=== PATIENT | male | born 1965 | race Caucasian/White ===

== ENCOUNTER 2024-12-04 10:24 | Emergency (ER) | payer MEDICARE, SELFPAY ==
[2024-12-04] VITALS (7 sets, daily range): BP systolic 93–121; BP diastolic 65–80; PULSE 66–91; RESP 14–21; TEMP 36.8; O2SAT 95–100
--- NOTE | 2024-12-04 10:39 | ECG_ITS ---
Test Date: 2024-12-04 10:44:43 Measurements Intervals [place] Rate: 65 P: 44 MN: 165 QRS: 27 QRSD: 93 T: 70 QT: 377 QTc: 394 Interpretive Statements SINUS RHYTHM MINIMAL Q WAVES- HIGH LATERAL LEADS NONSPECIFIC T-WAVE ABNORMALITY- HIGH LATERAL LEADS BORDERLINE ECG No previous ECG available for comparison Electronically Signed On 12-04-2024 10:47:05 CDT by Ezra Verdugo D.O.
--- NOTE | 2024-12-04 12:12 | ED.RECABL ---
HPI - Recheck/Abnormal Lab/Rx General Chief Complaint: Recheck/Abnormal Lab/Rx Stated Complaint: vagal after cath removal Time Seen by Provider: 12/04/24 12:05 History of Present Illness HPI narrative: this is a 59-year-old male with history of urinary retention who presents to the ED from urologist's office for syncopal episode. Patient states that he had his Hoffman catheter removed today ventrally after he passed out. He reports that he felt lightheaded and dizzy just prior to onset of symptoms. Chest pain palpitations. He is unsure how long he was but he feels that he is at his baseline this time denies chest pain, shortness of breath, changes in vision, lightheadedness, dizziness. Related Data Allergies Allergy/AdvReac Type Severity Reaction Status Date / Time morphine Allergy urticaria Verified 12/04/24 10:38 Penicillins Allergy Hives Verified 12/04/24 10:38 Sulfa (Sulfonamide Allergy Unknown Verified 12/04/24 10:38 Antibiotics) Review of Systems Review of Systems: Gen.: Denies fevers or chills Eyes: Denies eye pain or visual change ENT: Denies congestion Respiratory: Denies shortness of breath or cough CV: Denies chest pain or palpitations GI: Denies abdominal pain nausea, emesis or diarrhea denies burning, urgency, frequency or hematuria Musculoskeletal: Denies back pain or muscle pain Neuro: Denies numbness, tingling, weakness or focal weakness Skin: Denies rash Except as documented, all other systems reviewed and negative Exam Narrative: APPEARANCE: No acute distress, nontoxic, resting in bed EYES: EOMI HEENT: Normocephalic, atraumatic, OMM RESPIRATORY: No respiratory distress Clear to auscultation bilaterally with no rhonchi wheezing or rales. CARDIOVASCULAR: Regular rate and rhythm without murmurs rubs or gallops. ABDOMINAL: Soft, nontender, nondistended, no rebound or guarding MUSCULOSKELETAl: Moves all extremities. No clubbing, cyanosis or edema. NEURO: Awake and alert. Following commands, speech normal, no focal deficits SKIN:: Warm, dry. No rashes lesions or abrasions PSYCHIATRIC: Normal affect/mood, Course Vital Signs Vital signs: Vital Signs Temperature 98.2 F 12/04/24 10:27 Pulse Rate 73 12/04/24 10:27 Respiratory Rate 16 12/04/24 10:27 Blood Pressure 93/65 L 12/04/24 10:27 Pulse Oximetry 100 12/04/24 10:27 Temperature 98.2 F 12/04/24 10:27 Pulse Rate 91 12/04/24 12:29 Respiratory Rate 14 12/04/24 12:29 Blood Pressure 121/80 12/04/24 12:29 Pulse Oximetry 95 12/04/24 12:29 MDM - Recheck/Abnormal Lab/Rx MDM Narrative Medical decision making narrative: a 59-year-old male that presented to the ED after a syncopal episode at the urologist's office after having his Hoffman catheter removed. On initial evaluation, the patient was A/O x4 and hemodynamically stable. He was asymptomatic. Nonfocal neuro exam. Suspect patient had a vasovagal syncope episode related to having his Hoffman removed. EKG showed no concerning findings. Low suspicion for cardiogenic syncope. Patient was able to urinate so another Hoffman was not required. Patient was advised to follow up with his urologist as scheduled. Patient was agreeable with plan. Given strict return precautions. Differential Diagnosis Differential diagnosis: Likely other (vasovagal syncope, orthostatic hypotension. Less likely cardiogenic syncope.) Medical Records Attestation: I reviewed the patient's medical records. ECG Data EKG #1: ECG completion date: 12/04/24 ECG completion time: 10:44 Prior ECG tracings: not available for review Interpretation: normal sinus rhythm rate of 65, normal axis, normal intervals, no acute ST or T-wave changes. Discharge Plan Discharge Clinical Impression: Vasovagal syncope Patient Disposition: Home Condition: Stable Instructions: Antibiotic Form, Syncope (ED) Additional Instructions: Continue to drink plenty of water. Continue to follow with urologist office as scheduled. Return to the ED for any new or worsening symptoms. Patient Language: Macedonian Follow-up/Referrals: PHYSICIAN NOT ON STAFF,NONSTAFF [Primary Care Provider]
--- OUTSIDE RECORDS SUMMARY | 2024-12-04 12:42 | XMS_ITS | Clinical Summary ---
Author Organization [facility] Address [address] [place] [address] Phone Care Team Providers Care Hospice Consultant Name Role Phone William Cade MD Primary Care Provider [phone] Allergies Active Allergy Reactions Criticality Noted Date Comments Morphine Itching Medium 11/26/2015 Penicillins Unknown Medium 11/26/2015 childhood Medications Multiple Vitamin (MULTI-VITAMIN PO) Take 1 Tab by mouth daily. Active amitriptyline (ELAVIL) 50 MG Tablet Take 1 Tab by mouth nightly. 90 Tab 1 08/21/2019 Active atorvastatin (LIPITOR) 40 MG Tablet Take 1 Tab by mouth daily. 90 Tab 1 08/21/2019 Active DULoxetine (CYMBALTA) [address] Particles Take 2 Caps by mouth daily. 180 Cap 1 08/21/2019 Active fenofibrate 160 MG Tablet Take 1 Tab by mouth daily. 90 Tab 08/21/2019 Active gabapentin (NEURONTIN) 800 MG Tablet Take 1 Tab by mouth 4 times daily. 360 Tab 1 08/21/2019 Active meloxicam (MOBIC) 15 MG Tablet Take 1 Tab by mouth daily. 90 Tab 1 08/21/2019 Active ziprasidone (GEODON) 60 MG Capsule Take 1 Cap by mouth 2 times daily (with meals). 180 Cap 1 08/21/2019 Active Active Problems Problem Noted Date Diagnosed Date Idiopathic peripheral neuropathy 08/21/2019 Moderate episode of recurrent major depressive d isorder 04/22/2019 Failed back syndrome 04/22/2019 Mixed hyperlipidemia 04/22/2019 Pain due to bone fixation device 02/25/2016 Encounter for removal of internal fixation devic e 02/25/2016 Closed displaced fracture of middle phalanx of right ring finger 11/25/2015 Immunizations Immunization Administration Dates Next Due Influenza Vaccine greater than 3 yrs 02/09/2016 Influenza Vaccine, MDCK,quadrivalent, pres free 01/20/2019 Influenza, Seasonal, Injectable, Undefined 02/08 TDAP Vaccine 11/19/2015 Family History Medical History Relation Name Comments Hypertension Father Cancer Mother leukemia, brain Relation Name Status Comments Father Alive Mother Social History Tobacco Use Types Packs/Day Years Used Date Smoking Tobacco: Former Cigarettes 2 22.6 0 07/15/1983 - 02/22/2006 Smokeless Tobacco: Never Tobacco Cessation:Counseling Given: No Alcohol Use Standard Drinks/Week Comments No 0 (1 standard drink = 0.6 oz pur e alcohol) PHQ-2 Answer Date Recorded Total Score - Questions 1-9 0 10/2019 Sex and Gender Information Value Date Recorded Sex Assigned at Not on file Legal Sex Male 6:24 PM CDT Gender Identity Not on file Sexual Orientation Not on file Last Filed Vital Signs Vital Sign Reading Time Taken Comments Blood Pressure 120/78 04/25/2019 8:54 AM [facility] [employer] Pulse 74 04/22/2019 3:03 PM [employer] [employer] Temperature 36.7 C (98.1 F) 04/22/2019 3:03 PM [employer] Respiratory Rate 16 04/22/2019 3:03 PM [employer] Oxygen Saturation 98% 04/22/2019 3:03 PM [employer] Inhaled Oxygen Concentration - - Weight 79.4 kg (175 lb) 04/22/2019 3:03 PM [employer] Height 170.2 cm (5' 7) 04/22/2019 3:03 PM [employer] Body Mass Index 27.41 04/22/2019 3:03 PM [employer] [employer] Plan of Treatment Health Maintenance Due Date Last Done Comments Hepatitis C Virus (HCV) Screening 1964 Cologuard 2009 Colonoscopy 2009 Colorectal Cancer Screening 2009 Immunochemical Fecal Occult Blood 2009 Pneumococcal Immunization (5 0+ years) (1 of 1 - PCV) 2014 Zoster Immunization (1 of 2) 2014 SARS-COV-2 Immunization (1 - 2023- season) 2023 Influenza Immunization (#1) 12/15/202410/2018, 02/09/2016, 02/09/2016 Respiratory Syncytial Virus (RSV) Immunization (Adult) (1 - 1-dose 75+ series) 2039 DTaP/Tdap/Td Immunization Discontinued 11/19/2015 PSA Discussion Discontinued 04/25/2019 Hepatitis B Immunization Aged Out No longer eligible based on patient's age to complete this topic Human Papillomavirus (HPV) Immunization Aged Out No longer eligible based on patient's age to complete this topic Meningococcal Immunization (ACWY) Aged Out No longer eligible based on patient's age to complete this topic Rotavirus Immunization Aged Out No lo nger eligible based on patient's age to complete this topic Medical Devices Implanted Type Area Boat Repairer Device Identifier Shelf Expiration Date Model / Serial / Lot Screw [id number] Mod Hand - [id number] Implanted:Qty: 2 on 11/26/2015 by Dallin Bolaños MD at [facility] IMPLANT SYNTHES [id number] / / NONE [employer] Bio Comp Swivel Lock Closed Eyelet 4.75 [id number] - [id number] Implanted:Qty: 2 on 07/26/2016 by Eugenio David MD at [facility] IMPLANT Right: Shoulder [employer] 02/13/2018 [id number] / / [id number] Corkscrew S[employer] Implanted:Qty: 2 on 07/26/2016 by Eugenio David MD at [facility] Right: Shoulder [employer] 03/15/2018 [id number] / / [id number] Explanted Type Area Boat Repairer Device Identifier Shelf Expiration Date Model / Serial / Lot Screw [id number] Mod Hand - [id number] Explanted:Qty: 1 on 11/26/2015 by Dallin Bolaños MD at [facility] IMPLANT SYNTHES [id number] / / NONE Procedures Procedure Name Priority Date/Time Associated Diagnosis Comments PSA SCREEN Routine 04/25/2019 8:28 AM [facility] Encounter for special screening examination for neoplasm of prostate from Last 3 Months or Most Recently Relevant to Health Maintenance Results * PSA SCREEN (04/25/2019 8:28 AM [facility]) PSA SCREEN, TOTAL 0.66 0.00 - 4.00 ng/mL 04/25/2019 7:48 PM [employer] Comment:Performed by chemilu minometric assay on the Siemens ADVIA Centaur. Values obtained with different methods cannot be used interchangeably for patient monitoring. PSA is not a specific test for prostatic carcinoma and can be elevated with benign prostatic disease or following prostatic manipulation. Heterophilic antibodies may interfere with this assay. Blood specimen (specimen) Venipuncture / Unknown 04/25/2019 8:28 AM [facility] [employer] 04/25/2019 8:28 AM [employer] us William Cade MD CHEMISTRY ORDERABLES Final R esult [facility] [address] [place] [address] from Last 3 Months or Most Recently Relevant to Health Maintenance Insurance [facility] Care Teams Hospice Consultant Relationship Specialty Start Date End Date William Cade MD PCP - General Family Medicine 03/21/19
== END 2024-12-04 12:38 | disposition home or self-care (01) ==
LOC: ANHED 12:40
PROVIDERS: Emergency Provider Student in an Organized Health Care Education/Training Program
DX: R55 Syncope and collapse (principal); R94.31 Abnormal electrocardiogram [ECG] [EKG]
CPT/HCPCS: 93005; 99283

== ENCOUNTER 2025-01-22 07:15 | Outpatient (CLI) | payer MEDICARE, SELFPAY ==
--- NOTE | ~2025-01-22 | MR_ITS ---
EXAMINATION: MR abdomen wo/w con DATE: 01/22/2025 08:27 INDICATION: Renal mass. TECHNIQUE: Magnetic resonance imaging (MRI) of the abdomen was performed without and with 15 mL MultiHance intravenous contrast. COMPARISON: None. FINDINGS: There is diffuse hepatic steatosis. There is a 2.3 cm arterially enhancing mass in right hepatic lobe that is occult on other sequences without washout. There are cysts in the liver measuring up to 5 mm. The gallbladder, spleen, and adrenal glands are normal. There are multiple cysts in the pancreas measuring up to 4 mm. There are cysts in the kidneys measuring up to 3.0 cm on the left. There is a 1.8 cm hypoenhancing mass in left kidney upper pole anteriorly. There are no dilated loops of bowel. There are no pathologically enlarged lymph nodes. There is no free intraperitoneal fluid. IMPRESSION: 1. 1.8 cm hypoenhancing mass in left kidney upper pole anteriorly, consistent with renal cell carcinoma. 2. 2.3 cm hyperenhancing liver mass. In the absence of known malignancy or chronic liver disease, this finding is likely a hemangioma, focal nodular hyperplasia, or transient hepatic intensity difference (THID). 3. Low-risk cysts in the pancreas measuring up to 4 mm. The differential diagnosis includes pseudocyst, intraductal papillary mucinous neoplasm (IPMN), mucinous cystic neoplasm (MCN), serous cystadenoma, and neuroendocrine tumor. Abdomen MRI without and with contrast is recommended in one year. Reviewed, dictated and finalized at location E. IMPRESSION: 1. 1.8 cm hypoenhancing mass in left kidney upper pole anteriorly, consistent w ith renal cell carcinoma. 2. 2.3 cm hyperenhancing liver mass. In the absence of known malignancy or tool technician ange liver disease, this finding is likely a hemangioma, focal nodular hyperplas ia, or transient hepatic intensity difference (THID). 3. Low-risk cysts in the pancreas measuring up to 4 mm. The differential diagno sis includes pseudocyst, intraductal papillary mucinous neoplasm (IPMN), mucino us cystic neoplasm (MCN), serous cystadenoma, and neuroendocrine tumor. Abdomen MRI without and with contrast is recommended in one year.
== END 2025-01-22 07:16 | disposition home or self-care (01) ==
PROVIDERS: Visit Provider Nurse Practitioner Family
DX: N28.89 Other specified disorders of kidney and ureter (principal); R16.0 Hepatomegaly, not elsewhere classified; K86.2 Cyst of pancreas
CPT/HCPCS: 74183; A9577